=== PATIENT | male | born 1940 | race Caucasian/White ===

== ENCOUNTER 2021-03-13 16:28 | Inpatient (IN) | payer MEDICARE ==
[~2021-03-13] VITALS: Ht 172.7 cm; Wt 64.9 kg
[2021-03-13] MEDS ORDERED: SODIUM CHLORIDE 0.9% 1000ML 1,000 ML IV STA ×3 (16:46→19:11)
[2021-03-13] MEDS ORDERED: PANTOPRAZOLE 40 MG 10ML VIAL IV ONE (16:49)
[2021-03-13] MEDS ORDERED: SODIUM CHLORIDE 0.9% 50ML 50 ML ONE (16:56)
[2021-03-13] MEDS ORDERED: IOPAMIDOL 370 MG/ML 200 ML INFUS..BTL INJ ONE (16:56)
[2021-03-13] MEDS ORDERED: SODIUM CHLORIDE 0.9% 1000ML 2,000 ML ONE (16:59)
[2021-03-13] MEDS ORDERED: SODIUM CHLORIDE 0.9% 1000ML 1,000 ML ONE (19:37)
[2021-03-13] MEDS ORDERED: PANTOPRAZOLE 40 MG 10ML VIAL IV STA ×2 (21:04→23:56)
[2021-03-13 22:00] VITALS: BP 101/60
[2021-03-13 22:13] LABS: CALCIUM IONIZED 1.2 mmol/L (1.09-1.30)
[2021-03-13 22:14] LABS: BASOPHILS % 0.3 % (0.0-1.0); EOSINOPHILS % 0.2 % (0.0-6.0); HEMATOCRIT 29.7 % (38.2-49.6); HEMOGLOBIN 9.8 g/dL (14.0-18.0); LYMPHOCYTES # (AUTO) 2.5 (1.0-3.2); LYMPHOCYTES % 19.8 % (18.0-39.1); MEAN CORPUSCULAR HEMOGLOBIN 30.4 pg (28-32); MEAN CORPUSCULAR VOLUME 92.2 fL (81-99); MONOCYTES # (AUTO) 0.7 (0.2-0.8); MONOCYTES % 5.6 % (4.4-11.3); NEUTROPHILS # (AUTO) 9.3 (2.1-6.9); NEUTROPHILS % 73.7 % (38.7-80.0); PLATELET COUNT 106 x10e3/uL (140-360); RED BLOOD COUNT 3.22 x10e6/uL (4.3-5.7); RED CELL DISTRIBUTION WIDTH 13.5 % (11.7-14.4)
[2021-03-13 22:26] LABS: ALANINE AMINOTRANSFERASE < 6 IU/L (0-55); ALBUMIN 2.8 g/dL (3.5-5.0); ALBUMIN/GLOBULIN RATIO 1.5 (0.8-2.0); ALKALINE PHOSPHATASE 52 IU/L (40-150); ANION GAP 11.8 mmol/L (8-16); BLOOD UREA NITROGEN 33 mg/dL (7-26); BUN/CREATININE RATIO 46 (6-25); CALCIUM 7.1 mg/dL (8.4-10.2); CARBON DIOXIDE 20 mmol/L (22-29); CHLORIDE 115 mmol/L (98-107); CREATININE, SERUM 0.72 mg/dL (0.72-1.25); EST GLOMERULAR FILTRATION RATE > 60 ML/MIN (60-); GLUCOSE 117 mg/dL (74-118); POTASSIUM 3.8 mmol/L (3.5-5.1); SODIUM 143 mmol/L (136-145)
[2021-03-13 22:27] LABS: MAGNESIUM 1.7 MG/DL (1.3-2.1); PHOSPHORUS 2.6 MG/DL (2.3-4.7)
[2021-03-13 22:42] LABS: CREATINE KINASE MB 0.8 ng/mL (0-5.0)
[2021-03-13] MEDS ORDERED: ACETAMINOPHEN 325 MG TAB PO PRN (22:45)
[2021-03-13] MEDS ORDERED: HYDRALAZINE HCL 20 MG/ML VIAL IV PRN (22:45)
[2021-03-13] MEDS ORDERED: ONDANSETRON HCL INJ 2MG/ML 2ML 2 MG/ML VIAL IV PRN (22:45)
[2021-03-13 22:47] LABS: FERRITIN 86.46 ng/mL (21.81-274.66)
[2021-03-13] MEDS: OCTREOTIDE ACETATE 500 MCG in SODIUM CHLORIDE 0.9% 250ML 249 ML IV SCH (22:47)
[2021-03-13 23:00] VITALS: BP 90/45
[2021-03-14] VITALS (9 sets, daily range): BP systolic 94–100; BP diastolic 52–59
[2021-03-14] MEDS: PANTOPRAZOL 40MG/SOD CHL 0.9% 50 ML IV SCH ×5 (00:23→21:16)
[2021-03-14 00:38] LABS: INR 1.01; PROTHROMBIN TIME 13.9 seconds (11.9-14.5)
[2021-03-14 00:39] LABS: PARTIAL THROMBOPLASTIN TIME 27.1 seconds (23.8-35.5)
[2021-03-14] MEDS ORDERED: SODIUM CHLORIDE 0.9% 250ML 250 ML IV ONE (04:00)
[2021-03-14 05:52] LABS: BASOPHILS # (AUTO) 0.1 (0.0-0.1); BASOPHILS % 0.5 % (0.0-1.0); EOSINOPHILS # (AUTO) 0.1 (0.0-0.4); EOSINOPHILS % 1.3 % (0.0-6.0); HEMATOCRIT 27.8 % (38.2-49.6); HEMOGLOBIN 9.1 g/dL (14.0-18.0); LYMPHOCYTES # (AUTO) 2.4 (1.0-3.2); LYMPHOCYTES % 24.1 % (18.0-39.1); MEAN CORPUSCULAR HEMOGLOBIN 30.3 pg (28-32); MEAN CORPUSCULAR HGB CONC 32.7 g/dL (31-35); MEAN CORPUSCULAR VOLUME 92.7 fL (81-99); MONOCYTES # (AUTO) 0.8 (0.2-0.8); MONOCYTES % 8.1 % (4.4-11.3); NEUTROPHILS # (AUTO) 6.6 (2.1-6.9); NEUTROPHILS % 65.6 % (38.7-80.0); PLATELET COUNT 87 x10e3/uL (140-360); RED CELL DISTRIBUTION WIDTH 13.8 % (11.7-14.4)
[2021-03-14 06:11] LABS: CREATINE KINASE MB 0.8 ng/mL (0-5.0)
[2021-03-14 06:35] LABS: INR 1.01; PROTHROMBIN TIME 13.9 seconds (11.9-14.5)
[2021-03-14 07:04] LABS: ALANINE AMINOTRANSFERASE < 6 IU/L (0-55); ALBUMIN/GLOBULIN RATIO 1.7 (0.8-2.0); ALKALINE PHOSPHATASE 54 IU/L (40-150); ANION GAP 10.1 mmol/L (8-16); BLOOD UREA NITROGEN 25 mg/dL (7-26); BUN/CREATININE RATIO 33 (6-25); CALCIUM 7.6 mg/dL (8.4-10.2); CARBON DIOXIDE 22 mmol/L (22-29); CHLORIDE 112 mmol/L (98-107); CREATININE, SERUM 0.75 mg/dL (0.72-1.25); EST GLOMERULAR FILTRATION RATE > 60 ML/MIN (60-); GLUCOSE 123 mg/dL (74-118); POTASSIUM 4.1 mmol/L (3.5-5.1); SODIUM 140 mmol/L (136-145)
[2021-03-14] MEDS: OCTREOTIDE ACETATE 500 MCG in SODIUM CHLORIDE 0.9% 250ML 249 ML IV SCH ×3 (07:45→20:30)
[2021-03-14] MEDS ORDERED: PROPOFOL IV EMULSION 10 MG/ML 20 ML VIAL ONE (13:19)
[2021-03-14] MEDS ORDERED: EPHEDRINE SULFATE INJ 50 MG/ML VIAL ONE (13:19)
[2021-03-14] MEDS ORDERED: POVIDONE IODINE 0.05% 0.05 % ML PO ONE (13:19)
[2021-03-14 14:22] LABS: HEMATOCRIT 27.7 % (38.2-49.6)
[2021-03-14 14:48] LABS: CREATINE KINASE MB 0.8 ng/mL (0-5.0)
[2021-03-14] MEDS ORDERED: TAMSULOSIN HCL 0.4 MG CAP PO SCH (21:00)
[2021-03-15] VITALS: BP 92/55
[2021-03-15] MEDS: PANTOPRAZOL 40MG/SOD CHL 0.9% 50 ML IV SCH ×2 (03:34→09:21)
[2021-03-15 04:00] VITALS: BP 88/53
[2021-03-15] MEDS ORDERED: SODIUM CHLORIDE 0.9% 1000ML 1,000 ML IV ONE (04:45)
[2021-03-15 05:53] LABS: BASOPHILS % 0.3 % (0.0-1.0); EOSINOPHILS # (AUTO) 0.1 (0.0-0.4); EOSINOPHILS % 0.8 % (0.0-6.0); HEMATOCRIT 25.6 % (38.2-49.6); HEMOGLOBIN 8.5 g/dL (14.0-18.0); LYMPHOCYTES # (AUTO) 1.6 (1.0-3.2); LYMPHOCYTES % 13.1 % (18.0-39.1); MEAN CORPUSCULAR HEMOGLOBIN 30.9 pg (28-32); MEAN CORPUSCULAR HGB CONC 33.2 g/dL (31-35); MEAN CORPUSCULAR VOLUME 93.1 fL (81-99); MONOCYTES # (AUTO) 0.7 (0.2-0.8); MONOCYTES % 6.1 % (4.4-11.3); NEUTROPHILS # (AUTO) 9.4 (2.1-6.9); NEUTROPHILS % 79.4 % (38.7-80.0); PLATELET COUNT 77 x10e3/uL (140-360); RED BLOOD COUNT 2.75 x10e6/uL (4.3-5.7); RED CELL DISTRIBUTION WIDTH 13.7 % (11.7-14.4)
[2021-03-15 06:06] LABS: ANION GAP 10.7 mmol/L (8-16); BLOOD UREA NITROGEN 13 mg/dL (7-26); BUN/CREATININE RATIO 17 (6-25); CALCIUM 7.5 mg/dL (8.4-10.2); CARBON DIOXIDE 25 mmol/L (22-29); CHLORIDE 109 mmol/L (98-107); CREATININE, SERUM 0.77 mg/dL (0.72-1.25); EST GLOMERULAR FILTRATION RATE > 60 ML/MIN (60-); GLUCOSE 118 mg/dL (74-118); POTASSIUM 3.7 mmol/L (3.5-5.1); SODIUM 141 mmol/L (136-145)
[2021-03-15] MEDS: OCTREOTIDE ACETATE 500 MCG in SODIUM CHLORIDE 0.9% 250ML 249 ML IV SCH (06:39)
[2021-03-15 08:00] VITALS: BP 94/61
[2021-03-15 09:00] VITALS: BP 94/61
[2021-03-15 12:00] VITALS: BP 88/50
[2021-03-15] MEDS ORDERED: PANTOPRAZOLE SO40 MG PO (12:59)
== END 2021-03-15 14:30 | disposition home or self-care (01) | DRG 368 ==
LOC: FSED 16:45 → ERHOLD 17:51 → IMCU 21:48
PROVIDERS: ADMIT Internal Medicine; ATTEND Internal Medicine
PROC: 0DB68ZX Excision of Stomach, Via Natural or Artificial Opening Endoscopic, Diagnostic (ICD-10-PCS; principal; 2021-03-14 10:30)
DX: K20.91 Esophagitis, unspecified with bleeding (principal); R57.8 Other shock; D62 Acute posthemorrhagic anemia; I95.9 Hypotension, unspecified; K29.70 Gastritis, unspecified, without bleeding; I10 Essential (primary) hypertension; Z91.041 Radiographic dye allergy status; M06.9 Rheumatoid arthritis, unspecified; N40.0 Benign prostatic hyperplasia without lower urinary tract symptoms; K20.90 Esophagitis, unspecified without bleeding; K44.9 Diaphragmatic hernia without obstruction or gangrene; K26.9 Duodenal ulcer, unspecified as acute or chronic, without hemorrhage or perforation; K25.9 Gastric ulcer, unspecified as acute or chronic, without hemorrhage or perforation; Z20.822 Contact with and (suspected) exposure to COVID-19; K29.50 Unspecified chronic gastritis without bleeding
CPT/HCPCS: 36415; 36569; 43239; 71045; 80048; 80053; 81003; 82150; 82550; 82553; 82728; 83540; 83690; 83735; 83880; 84100; 84466; 84484; 85014; 85018; 85025; 85379; 85610; 85730; 86850; 86900; 86920; 88305; 88312; 93005; 99284; J2353; J7030; J7050; Q9967; U0002